=== PATIENT | female | born 1975 | race Caucasian/White ===

== ENCOUNTER 2020-05-05 14:14 | Outpatient (CLI) | payer BC | END 2020-05-05 14:15 | disposition home or self-care (01) | LOC: CSHMAMMO 14:14 | PROVIDERS: ATTEND Family Medicine Sports Medicine | DX: Z12.31 Encounter for screening mammogram for malignant neoplasm of breast (principal); R92.1 Mammographic calcification found on diagnostic imaging of breast | CPT/HCPCS: 77063; 77067 ==

== ENCOUNTER 2020-05-22 18:35 | Outpatient (CLI) | payer BC ==
[2020-05-22 21:04] LABS: BHCG - Serum Negative (NEGATIVE); Pregs Control Background? CLEAR/WHITE (CLR/WHITE); Pregs Control Bar Appear? YES (CONTROL BAR)
[2020-05-23 16:47] LABS: SARS-CoV-2 PCR by NAA Not Detected (NotDetected)
== END 2020-05-22 18:36 | disposition home or self-care (01) ==
LOC: CSHLAB 18:35
PROVIDERS: ATTEND Surgery
DX: Z01.812 Encounter for preprocedural laboratory examination (principal); Z20.822 Contact with and (suspected) exposure to COVID-19
CPT/HCPCS: 84703; 87635; U0003; U0005

== ENCOUNTER → 2020-05-22 | Day surgery (SDC) | payer BC | LOC: CSHMAMMO 18:29 | PROVIDERS: ATTEND Surgery | DX: Z01.812 Encounter for preprocedural laboratory examination (principal); N63.20 Unspecified lump in the left breast, unspecified quadrant; Z20.822 Contact with and (suspected) exposure to COVID-19 ==

== ENCOUNTER 2020-05-25 08:46 | Day surgery (SDC) | payer BC ==
[2020-05-23 15:47] VITALS: BMI 22.3
[2020-05-25] MEDS ORDERED: EPINEPHrine 1 MG/ML AMP ONE (09:23)
[2020-05-25] MEDS ORDERED: Bupivacaine PF 0.5% 30 ML VIAL ONE (09:23)
[2020-05-25] MEDS ORDERED: Lidocaine 1% MPF 2 ML VIAL ONE (10:09)
[2020-05-25] MEDS ORDERED: PROPOFOL 20 ML ONE (10:41)
[2020-05-25] MEDS ORDERED: Fentanyl 100 MCG/2 ML VIAL ONE (10:41)
[2020-05-25] MEDS ORDERED: Ketorolac Tromethamine 30 MG/ML VIAL ONE (10:42)
[2020-05-25] MEDS ORDERED: Midazolam HCl 2 mg/2 ml Vial ONE (10:42)
[2020-05-25] MEDS ORDERED: Dexamethasone 4 mg/ml Vial ONE (10:42)
[2020-05-25] MEDS ORDERED: Ondansetron PF 4 MG/2 ML Vial ONE (10:42)
[2020-05-25] MEDS ORDERED: Glycopyrrolate 0.2 MG/ML 5 ML SYRINGE ONE (10:42)
[2020-05-25] MEDS ORDERED: Lidocaine 1% PF 5 ML VIAL ONE (10:42)
[2020-05-25] MEDS ORDERED: HYDROcodone/Acetaminophen 5/325 mg Tablet PO PRN (11:56)
== END 2020-05-25 13:25 | disposition home or self-care (01) ==
LOC: CSHSDC 08:46
PROVIDERS: ATTEND Surgery
DX: R92.0 Mammographic microcalcification found on diagnostic imaging of breast (principal); N63.20 Unspecified lump in the left breast, unspecified quadrant; N60.82 Other benign mammary dysplasias of left breast
CPT/HCPCS: 19281; 76098; 88307; J0171; J0690; J1100; J1885; J2250; J2405; J2704; J3010; S0020

== ENCOUNTER 2021-12-14 14:30 | Outpatient (CLI) | payer BC | END 2021-12-14 14:31 | disposition home or self-care (01) | LOC: CSHMAMMO 14:30 | PROVIDERS: ATTEND Family Medicine Sports Medicine | DX: Z12.31 Encounter for screening mammogram for malignant neoplasm of breast (principal); Z98.890 Other specified postprocedural states | CPT/HCPCS: 77063; 77067 ==

== ENCOUNTER 2022-12-27 14:58 | Outpatient (CLI) | payer OTHER | END 2022-12-27 14:59 | disposition home or self-care (01) | LOC: CSHMAMMO 14:58 | PROVIDERS: ATTEND Family Medicine Sports Medicine | DX: Z12.31 Encounter for screening mammogram for malignant neoplasm of breast (principal); Z98.890 Other specified postprocedural states | CPT/HCPCS: 77063; 77067 ==

== ENCOUNTER 2023-07-25 07:42 | Outpatient (CLI) | payer OTHER | END 2023-07-25 07:43 | disposition home or self-care (01) | LOC: CSHMAMMO 07:42 | PROVIDERS: ATTEND Obstetrics & Gynecology | DX: N63.20 Unspecified lump in the left breast, unspecified quadrant (principal) | CPT/HCPCS: G0279 ==

== ENCOUNTER 2024-01-02 13:41 | Outpatient (CLI) | payer OTHER | END 2024-01-02 13:42 | disposition home or self-care (01) | LOC: CSHMAMMO 13:41 | PROVIDERS: ATTEND Obstetrics & Gynecology | DX: Z12.31 Encounter for screening mammogram for malignant neoplasm of breast (principal); Z98.890 Other specified postprocedural states | CPT/HCPCS: 77063; 77067 ==